=== PATIENT | female | born 1935 | race Caucasian/White ===

== ENCOUNTER → 2016-09-17 | Outpatient (CLI) | payer OTHER | LOC: FIMAGING 11:13 | PROVIDERS: ATTEND Internal Medicine | DX: Z12.31 Encounter for screening mammogram for malignant neoplasm of breast (principal) | CPT/HCPCS: G0202 ==

== ENCOUNTER 2016-10-09 15:58 | Inpatient (IN) | payer OTHER ==
--- NOTE | 2016-10-09 17:09 | CPEKG ---
Heart Rate: 52 RR Interval: 1154 P-R Interval: 164 QRSD Interval: 84 QT Interval: 488 QTC Interval: 454 P Isabella: 45 QRS Isabella: -11 T Wave Isabella: 12 EKG Severity - ABNORMAL ECG - EKG Impression: SINUS RHYTHM EKG Impression: LEFT VENTRICULAR HYPERTROPHY EKG Impression: LVH IS NEW IN COMPARISON TO PRIOR ECGS (2015, 2012) Electronically Signed By: Jermaine Monroe 11-Oct-2016 15:26:01
[2016-10-09] MEDS ORDERED: NS 500 ML IV ONE (17:41)
--- NOTE | 2016-10-09 17:51 | EDPHY ---
HPI/HX/ROS/PE/MDM Narrative: CHIEF COMPLAINT: High blood pressure HPI: This patient is an 81 year old female arriving with her family complaining of vertigo, nausea, and abnormal high blood pressure onset today. She generally has vertigo, which is resolvable with the Cayla maneuver. She has had some vertigo for the last couple days. Today, her symptoms were worse than usual: tipping her head down makes her nauseous, and turning her head causes pressure, especially at the back of her head. She took her blood pressure at home, and noted it was much higher than usual. She visited her primary care provider, who took two more blood pressure readings which measured around 200/100 and recommended she present to the emergency department for evaluation. She is currently feeling better than she did earlier, but continues to feel some vertigo and mild neck pain. She endorses mild left arm pain. No chest pain or shortness of breath. She was taking HCTZ, but discontinued this under her doctor 's advice around one-two weeks ago due to low blood pressure. REVIEW OF SYSTEMS: Aside from elements discussed in the HPI, a comprehensive 10-point review of systems was reviewed and is negative. PMH: Essential tremors (Propranolol), Vertigo, Inner ear problems, Pancreatic cyst, Hypothyroid, Depression SOCIAL HISTORY: . at bedside. Lives in [place]. Retired. PHYSICAL EXAM: General:Patient is alert, in no acute distress. ENT:Eyes are normal to inspection. ENT inspection normal. Neck: Normal inspection. Full range of motion. Respiratory:No respiratory distress. Breath sounds normal bilaterally. Cardiovascular: Regular rate and rhythm. Strong peripheral pulses. Normal cap refill. Abdomen:The abdomen is nontender to palpation. There are no peritoneal signs. There are normal bowel sounds. Back: Normal to inspection. No tenderness to palpation. Skin: Normal color. No rash. Warm and dry. Extremities: Normal appearance. Full range of motion. Neuro: Oriented x3. Normal motor function. Normal sensory function. No pronator drift. [id number] normal. Portions of this note were transcribed by an ED scribe. I personally performed the history, physical exam, and medical decision making; and confirm the accuracy of the information in the transcribed note. ED Course: EKG was ordered and interpreted by myself. Please see [employer] system for official reading. Plan for labs including CBC, BMP, and Troponin. Plan for CT head without contrast. MDM: On re-evaluation at 8:45 p.m., the patient is stable but states she still feels very weak and unsteady. Her blood pressures come down spontaneously to approximately 160, without treatment of the normal saline, so I do not think further antihypertensives are indicated. Patient remains slightly bradycardic, so I certainly do not think further beta-odette therapy is indicated. Her workup is negative for acute ischemia but she did have an episode of left arm tingling associated with her hypertension. The patient states she does not feel comfortable going home and her elderly cannot take care of her, therefore I think she requires at least an observation stay overnight in the hospital. I spoke to Dr. Alejandra Becker who accepts admission. I see no evidence of ischemic stroke, hemorrhagic stroke, acute coronary syndrome, pneumonia, sepsis. - Data Points Imaging Results: Imaging Impressions Head CT 10/09/16 18:35 Impression: Normal. I telephoned results to Dr. Nash Baires at 2023 hours. Laboratory Results: Laboratory Results 10/09/16 17:18 10/09/16 17:18 10/09/16 10/09/16 17:18 17:18 WBC 7.17 10^3/uL 10^3/uL (3.80-9.50) RBC 4.19 10^6/uL 10^6/uL (4.18-5.33) Hgb 13.2 g/dL g/dL (12.6-16.3) Hct 38.2 % % (38.0-47.0) MCV 91.2 fL fL (81.5-99.8) MCH 31.5 pg pg (27.9-34.1) MCHC 34.6 g/dL g/dL (32.4-36.7) RDW 12.9 % % (11.5-15.2) Plt Count 232 10^3/uL 10^3/uL (150-400) MPV 10.4 fL fL (8.7-11.7) Neut % (Auto) 49.1 % % (39.3-74.2) Lymph % (Auto) 36.4 % % (15.0-45.0) [place] % (Auto) 11.3 % % (4.5-13.0) Eos % (Auto) 2.6 % % (0.6-7.6) Baso % (Auto) 0.3 % % (0.3-1.7) Nucleat RBC Rel Count 0.0 % % (0.0-0.2) Absolute Neuts (auto) 3.52 10^3/uL 10^3/uL (1.70-6.50) Absolute Lymphs (auto) 2.61 10^3/uL 10^3/uL (1.00-3.00) Absolute Monos (auto) 0.81 10^3/uL H 10^3/uL (0.30-0.80) Absolute Eos (auto) 0.19 10^3/uL 10^3/uL (0.03-0.40) Absolute Basos (auto) 0.02 10^3/uL 10^3/uL (0.02-0.10) Absolute Nucleated RBC 0.00 10^3/uL 10^3/uL (0-0.01) Immature Gran % 0.3 % % (0.0-1.1) Immature Gran # 0.02 10^3/uL 10^3/uL (0.00-0.10) Sodium 141 mEq/L mEq/L (134-144) Potassium 3.9 mEq/L mEq/L (3.5-5.2) Chloride 105 mEq/L mEq/L (97-110) Carbon Dioxide 24 mEq/l mEq/l (22-31) Anion Gap 12 mEq/L mEq/L (8-16) BUN 16 mg/dL mg/dL (7-23) Creatinine 0.9 mg/dL mg/dL (0.6-1.0) Estimated GFR > 60 Glucose 96 mg/dL mg/dL (70-100) Calcium 9.8 mg/dL mg/dL (8.5-10.4) Troponin I < 0.012 ng/mL ng/mL (0-0.034) Medications Given: Discontinued Medications Sodium Chloride (Ns) 500 mls @ 1,000 mls/hr IV EDNOW ONE PRN Reason: Protocol Stop: 10/09/16 18:10 Last Admin: 10/09/16 17:49 Dose: 500 mls General Time Seen by Provider: 10/09/16 17:21 Initial Vital Signs: Initial Vital Signs Temperature (C) 36.7 C 10/09/16 16:00 Heart Rate 58 L 10/09/16 16:00 Respiratory Rate 18 10/09/16 16:00 Blood Pressure 204/103 H 10/09/16 16:00 O2 Sat (%) 94 10/09/16 16:00 O2 Delivery Mode Room Air,[place] Allergies/Adverse Reactions: Penicillins Allergy (Unknown, Verified 10/09/16 21:12) Hives Home Medications: Medication Instructions Recorded FLUoxetine [Prozac 20 MG (*)] 20 mg PO HS 03/13/12 Levothyroxine [Synthroid 50 mcg 50 mcg PO DAILY 03/13/12 (*)] Ranitidine HCl [Ranitidine HCl 150 150 mg PO BID 03/13/12 mg] Losartan Potassium [Cozaar 50 mg 50 mg PO HS 01/20/16 (*)] Propranolol Sr [Inderal LA 60mg 60 mg PO DAILY 01/20/16 (*)] Simvastatin [Zocor] 40 mg PO HS 01/20/16 Departure - Departure Disposition: [facility] Acute Clinical Impression: Hypertension, Headache, Vertigo Condition: Fair
[2016-10-09 17:55] LABS: % IMMATURE GRANULYOCYTES 0.3 % (0.0-1.1); ABSOLUTE IMMATURE GRANULOCYTES 0.02 10^3/uL (0.00-0.10); ADD DIFF? NO; ADD MORPH? NO; ADD SCAN? NO; ATYPICAL LYMPHOCYTE FLAG 0 (0-99); FRAGMENT RBC FLAG 0 (0-99); HEMATOCRIT 38.2 % (38.0-47.0); HEMOGLOBIN 13.2 g/dL (12.6-16.3); LEFT SHIFT FLG 0 (0-99); LIPEMIA HEMOLYSIS FLAG 90 (0-99); MEAN CELL HEMOGLOBIN 31.5 pg (27.9-34.1); MEAN CELL HEMOGLOBIN CONCENTR. 34.6 g/dL (32.4-36.7); MEAN CELL VOLUME 91.2 fL (81.5-99.8); MEAN PLATELET VOLUME 10.4 fL (8.7-11.7); PLATELET CLUMPS FLAG 0 (0-99); PLATELET COUNT 232 10^3/uL (150-400); RED BLOOD CELL COUNT 4.19 10^6/uL (4.18-5.33); RED CELL DISTRIBUTION WIDTH 12.9 % (11.5-15.2)
[2016-10-09 17:58] LABS: ANION GAP 12 mEq/L (8-16); CALCIUM 9.8 mg/dL (8.5-10.4); CARBON DIOXIDE 24 mEq/l (22-31); CHLORIDE 105 mEq/L (97-110); CREATININE 0.9 mg/dL (0.6-1.0); GLOMERULAR FILTRATION RATE > 60; GLUCOSE 96 mg/dL (70-100); POTASSIUM 3.9 mEq/L (3.5-5.2); SODIUM 141 mEq/L (134-144)
[2016-10-09 18:10] LABS: TROPONIN I < 0.012 ng/mL (0-0.034)
[2016-10-09] MEDS ORDERED: ONDANSETRON 4 MG/2 ML VIAL IVP PRN (21:52)
[2016-10-09] MEDS ORDERED: ONDANSETRON DISINTEGRATING 4 MG TAB PO PRN (21:52)
[2016-10-09] MEDS: FLUoxetine 20 MG CAP PO SCH (22:19)
[2016-10-09] MEDS: LOSARTAN POTASSIUM 50 MG TAB PO SCH (22:19)
[2016-10-09] MEDS: ATORVASTATIN CALCIUM 20 MG TAB PO SCH (22:19)
[2016-10-09] MEDS: FAMOTIDINE 20 MG TAB PO SCH (22:24)
--- NOTE | 2016-10-09 23:03 | GHP ---
[f rep st] HISTORY AND PHYSICAL DATE OF ADMISSION: 10/09/2016 CHIEF COMPLAINT: Hypertension and headache. HISTORY OF PRESENT ILLNESS: The patient is an 81-year-old female, with a history of positional vert igo, essential tremor, and hypertension, who presented to the emergency department after having an e levated blood pressure at home. She was recently seen in her primary care physician's office and he r hydrochlorothiazide was discontinued due to low blood pressure. She was going to her primary care physician's office where her systolic blood pressure was greater than 200. This was associated wit h a headache, which she describes as a pressure sensation in her head. She denied any vision change s or speech abnormalities. She has had no chest pain or shortness of breath. She reports recurrent positional vertigo, though has no symptoms at this time, and did not become vertiginous with her el evated blood pressure. In the emergency department, she was given 500 cc of normal saline, and with time her systolic blood pressure has come down to 157/80. She is currently asymptomatic, is admitted to the hospital for f urther observation. PAST MEDICAL HISTORY: 1. Hypertension. 2. Hyperlipidemia. 3. Hypothyroidism. 4. GERD. 5. Pulmonary hypertension. 6. History of diastolic dysfunction. 7. Essential tremor. 8. Benign paroxysmal positional vertigo. 9. Depression. 10. History of pancreatic cyst. PAST SURGICAL HISTORY: Parotid tumor resection, bilateral lower extremity vein ligations, hemorrhoi dectomy, cervical fusion. MEDICATIONS: Please see [employer] for complete updated outpatient medication list. ALLERGIES: Penicillin. SOCIAL HISTORY: The patient is . She lives independently. Her at the bedside. She is a former smoker. She denies alcohol or drug use. FAMILY HISTORY: Reviewed and noncontributory. REVIEW OF SYSTEMS: A 10-point review of systems was performed and is negative except as per HPI. PHYSICAL EXAMINATION: VITAL SIGNS: On arrival, blood pressure was 204/103, current blood pressure 157/80 without intervention. Heart rate is in the 50s. Respiratory rate is 16. She is 96% on room air. GENERAL: The patient is awake, alert, oriented, in no acute distress. HEENT: Head is atrau matic, normocephalic. Pupils equal, round, react to light. Extraocular muscles intact. Oropharynx is clear. Mucous membranes are moist. NECK: Supple. There is no JVD. HEART: Regular rate and r hythm without murmur. LUNGS: Clear to auscultation bilaterally. ABDOMEN: Soft, nondistended, non tender, with normoactive bowel sounds. EXTREMITIES: Without cyanosis, clubbing, or edema. NEUROLO GIC: A benign tremor is noted. There is no facial asymmetry. Pronator drift is negative. She has 5/5 muscle strength in bilateral upper and lower extremities. Speech is fluent. There are no foca l neuro deficits. LABORATORY DATA: CBC is completely normal. Basic metabolic panel shows normal electrolytes, normal kidney function. Troponin is negative. Head CT performed in the emergency department, personally reviewed and interpreted, shows no acute i ntracranial abnormality. EKG shows normal sinus rhythm. Finding suspicious for left ventricular hypertrophy. Otherwise, no ST-segment or T-wave changes concerning for acute ischemia. She does have T-wave inversions in lead III, though this is not carried over into continuous leads. ASSESSMENT AND PLAN: The patient is an 81-year-old female with history of hypertension and position al vertigo, presents to the emergency department with headache and elevated blood pressure. 1. Hypertensive urgency. I suspect her headache symptoms were related to her elevated blood pressu re. Her systolic blood pressure has come down on its own. She has not received anything to treat h er blood pressure thus far. She is currently 157/80, and she is asymptomatic. She will be admitted for observation. Continue her on her regular outpatient medications, including losartan and propra nolol. We can uptitrate these as needed. She did apparently have hypotension, and her hydrochlorot hiazide was recently discontinued. Therefore, we may need to accept some slightly more elevated sys tolic pressures to avoid hypotensive events. We will go ahead and trend her troponin. 2. Vertigo. She has been diagnosed with benign paroxysmal positional vertigo, and has an appointme nt with outpatient physical therapy to undergo Apley maneuvers. She is currently asymptomatic. 3. Essential tremor. We will continue her on her propranolol. 4. Hyperlipidemia. We will continue her statin. 5. Hypothyroidism. We will continue her levothyroxine. 6. Depression, anxiety. She will be continued on her Prozac. 7. Code status: Patient is full code. 8. Deep vein thrombosis prophylaxis. We will place sequential compression devices for now. If the patient has a prolonged hospitalization, would consider Lovenox. DISPOSITION: Patient is admitted to observation status. She will likely be a candidate for dischar ge tomorrow if she remains asymptomatic and normotensive. /[id number]/MODL
[2016-10-10] MEDS: LEVOTHYROXINE 50 MCG TAB PO SCH (06:00)
[2016-10-10] MEDS: ACETAMINOPHEN 325 MG TAB PO PRN ×2 (06:01→15:50)
[2016-10-10] MEDS: PROPRANOLOL SR 60 MG CAP PO SCH (08:54)
[2016-10-10] MEDS: FAMOTIDINE 20 MG TAB PO SCH (08:54)
--- NOTE | 2016-10-10 11:24 | HOSPPROG ---
Hospitalist Progress Note Assessment/Plan: 81 yo female admitted with HTN urgency (first encounter with this patient) #HTN Urgency, still with elevated BP -Recently stopped HCTZ, will not continue -will increase Losartan to 50mg HS and start 25mg Qam (first dose now) -Cont Propranolol -Allow some permissive HTN, but too high at this time -Labile BP noted, will avoid Hypotension #BRAVO -resolved, likely due to elevated BP #Vertigo: no sx's currently. Already has outpatient f/u with PT #Fatigue and generalized weakness, will order PT #HLD #Hypothyroidism: cont Levothyroxine #DVT proph: will start Lovenox today Dispo: change to inpatient. Await response to increase meds per above. Anticipate d/c in 1/2 days. Subjective: still with elevated BP. BRAVO resolved. NO CP or SOB. Very fatigued and generalized weakness. Objective: Vital Signs Temp Pulse Resp BP Pulse Ox 36.5 C 55 L 16 162/89 H 95 10/10/16 07:22 10/10/16 08:54 10/10/16 07:22 10/10/16 08:54 10/10/16 07:22 10/09/16 10/10/16 10/11/16 05:59 05:59 05:59 Intake Total 100 Output Total 800 Balance -700 - Physical Exam Constitutional: chronically ill appearing Eyes: PERRL, EOMI Ears, Nose, Mouth, Throat: moist mucous membranes, hearing normal Cardiovascular: regular rate and rhythym, No JVD, No bradycardia, No edema Respiratory: no respiratory distress, no rales or rhonchi, clear to auscultation Gastrointestinal: normoactive bowel sounds, soft, non-tender abdomen, no palpable masses Genitourinary: no bladder fullness Skin: warm Musculoskeletal: generalized weakness Neurologic: AAOx3 Psychiatric: interacting appropriately, not encephalopathic, thought process linear, anxious ICD10 Worksheet Patient Problems: Problems Problem Status Onset Headache Acute Hypertension Acute Vertigo Acute Failure to thrive Acute Tremor Acute
[2016-10-10] MEDS: LOSARTAN POTASSIUM 25 MG TAB PO SCH (12:25)
[2016-10-10] MEDS: ENOXAPARIN 40 MG/0.4 ML SYR SC SCH (12:25)
[2016-10-10 19:44] VITALS: RESP 16
[2016-10-10] MEDS: ATORVASTATIN CALCIUM 20 MG TAB PO SCH (20:22)
[2016-10-10] MEDS: LOSARTAN POTASSIUM 50 MG TAB PO SCH (20:22)
[2016-10-10] MEDS: FLUoxetine 20 MG CAP PO SCH (20:22)
[2016-10-11] MEDS: ACETAMINOPHEN 325 MG TAB PO PRN (00:49)
[2016-10-11] MEDS: LEVOTHYROXINE 50 MCG TAB PO SCH (05:33)
[2016-10-11 08:27] VITALS: BP 155/87; PULSE 56; TEMP 98.4; O2SAT 94
[2016-10-11] MEDS ORDERED: FAMOTIDINE 20 MG TAB PO SCH (09:00)
[2016-10-11] MEDS: PROPRANOLOL SR 60 MG CAP PO SCH (09:47)
[2016-10-11] MEDS: LOSARTAN POTASSIUM 25 MG TAB PO SCH (09:48)
[2016-10-11] MEDS: ENOXAPARIN 40 MG/0.4 ML SYR SC SCH (09:48)
--- NOTE | 2016-10-11 10:25 | PDDCSUM ---
Discharge Summary Discharge Summary: 81 yo female admitted with HTN urgency. She was admitted and provided IV BP meds. Her home regimen was modified and Losartan was increased to 25mg qam and 50mg qhs. BP now is better and mostly 150's - 160's. No further decrease of BP at this time, will allow for some permissive HTN given her age as well as likely elevated for some time. Will need f/u with PCP which she will arrange. DDX #HTN Urgency -Recently stopped HCTZ, will not continue -will increase Losartan to 50mg HS and start 25mg Qam -Cont Propranolol -Allow some permissive HTN -Labile BP noted, avoid Hypotension #BRAVO -resolved, likely due to elevated BP #Vertigo: no sx's currently. Already has outpatient f/u with PT #Fatigue and generalized weakness: feels better. Worked with PT #HLD #Hypothyroidism: cont Levothyroxine #DVT proph: Lovenox was provided P.E. VS Reviewed, BP 150's NAD AAOX3 PEERL EOMI NO JVD RRR CTA B NO LE EDEMA MEDS: SEE MED REC NEW MEDS: Losartan 25mg qam total time spent on discharge: 35 minutes
== END 2016-10-11 11:16 | disposition home or self-care (01) | DRG 305 ==
LOC: F1N 21:15 → OBSVTOIN 10-10 11:40
PROVIDERS: ADMIT Hospitalist; ATTEND Hospitalist
DX: I16.0 Hypertensive urgency (principal); H81.10 Benign paroxysmal vertigo, unspecified ear; G25.0 Essential tremor; E78.5 Hyperlipidemia, unspecified; E03.9 Hypothyroidism, unspecified; K21.9 Gastro-esophageal reflux disease without esophagitis; F41.8 Other specified anxiety disorders
CPT/HCPCS: 97161-GP; 97165-GO; G0378; G8978-GP-CJ; G8979-GP-CI; G8987-GO-CI; G8988-GO-CH; G8989-GO-CH; J1650

== ENCOUNTER 2016-10-20 16:05 | Emergency (ER) | payer OTHER ==
--- NOTE | 2016-10-20 16:56 | CPEKG ---
Heart Rate: 58 RR Interval: 1034 P-R Interval: 168 QRSD Interval: 76 QT Interval: 440 QTC Interval: 433 P [place]: 38 QRS [place]: -11 T Wave [place]: 2 EKG Severity - ABNORMAL ECG - EKG Impression: SINUS RHYTHM EKG Impression: CONSIDER LEFT VENTRICULAR HYPERTROPHY Electronically Signed By: Weston Dodson 20-Oct-2016 23:38:25
[2016-10-20 17:36] LABS: % IMMATURE GRANULYOCYTES 0.3 % (0.0-1.1); ABSOLUTE IMMATURE GRANULOCYTES 0.02 10^3/uL (0.00-0.10); ADD DIFF? NO; ADD MORPH? NO; ADD SCAN? NO; ATYPICAL LYMPHOCYTE FLAG 20 (0-99); FRAGMENT RBC FLAG 0 (0-99); HEMATOCRIT 37.2 % (38.0-47.0); HEMOGLOBIN 12.9 g/dL (12.6-16.3); LEFT SHIFT FLG 0 (0-99); LIPEMIA HEMOLYSIS FLAG 90 (0-99); MEAN CELL HEMOGLOBIN 31.5 pg (27.9-34.1); MEAN CELL HEMOGLOBIN CONCENTR. 34.7 g/dL (32.4-36.7); MEAN CELL VOLUME 90.7 fL (81.5-99.8); MEAN PLATELET VOLUME 10.6 fL (8.7-11.7); PLATELET CLUMPS FLAG 0 (0-99); PLATELET COUNT 245 10^3/uL (150-400); RED CELL DISTRIBUTION WIDTH 12.7 % (11.5-15.2)
[2016-10-20 17:39] LABS: ANION GAP 11 mEq/L (8-16); CALCIUM 9.6 mg/dL (8.5-10.4); CARBON DIOXIDE 21 mEq/l (22-31); CHLORIDE 109 mEq/L (97-110); CREATININE 0.9 mg/dL (0.6-1.0); GLOMERULAR FILTRATION RATE > 60; GLUCOSE 87 mg/dL (70-100); POTASSIUM 4.4 mEq/L (3.5-5.2); SODIUM 141 mEq/L (134-144)
[2016-10-20] MEDS ORDERED: ACETAMINOPHEN 500 MG TAB PO ONE (18:04)
--- NOTE | 2016-10-20 18:04 | EDPHY ---
H & P Time Seen by Provider: 10/20/16 17:30 HPI/ROS: Chief complaint. High blood pressure, headache HPI. Patient is an 81-year-old female here with high blood pressure and headache. She was hospitalized October 10 for the same. Her blood pressure was high. She was increased from losartan 50 mg at night to 25 mg in the morning and 25 mg at night. Her PCP recommended 50 in the morning and 50 at night the patient was concerned that her blood pressure might get too low. She was recently taken off hydrochlorothiazide because of low blood pressure. Today she felt tired to her blood pressure it was 175/95. She then took her blood pressure meds and blood pressure was 125/66. She was lying down took her blood pressure again and it was 160/93. She felt slightly dizzy which is typical of her vertigo. She then developed tightness to her head and now generalized headache. No change in her vision, chest discomfort, shortness of breath, abdominal pain, focal weakness to arms or legs. ROS Constitutional. High blood pressure Eyes. no problems with vision ENT. no sore throat, no nasal drainage Cardiovascular. no chest pain Respiratory. no shortness of breath, no cough Abdominal. no abdominal pain, no nausea/vomiting, no diarrhea . no problems urinating MS. no calf pain/swelling, no neck/back pain, no joint pain Skin. no rash Lymph. no swollen glands Neuro. Headache Past Medical/Surgical History: Hypertension, essential tremor, vertigo, hypothyroid, pancreatic cyst, depression Social History: , nonsmoker, no alcohol Smoking Status: Former smoker Physical Exam: General Appearance: Alert well-developed female moderate distress initial vital signs show blood pressure 1 79/97 Eyes: Pupils equal and round no pallor or injection. ENT, Mouth: Mucous membranes are moist. Respiratory: There are no retractions, lungs are clear to auscultation. Cardiovascular: Regular rate and rhythm. Gastrointestinal: Abdomen is soft and nontender, no masses, bowel sounds normal. Neurological: Awake and alert, sensory and motor exams grossly normal. Skin: Warm and dry, no rashes. Musculoskeletal: Neck is supple nontender. Extremities symmetrical, full range of motion. Psychiatric: Patient is oriented X 3, there is no agitation. Constitutional: Initial Vital Signs Temperature (C) 36.6 C 10/20/16 16:12 Heart Rate 62 10/20/16 16:12 Respiratory Rate 14 10/20/16 16:12 Blood Pressure 179/97 H 10/20/16 16:12 O2 Sat (%) 97 10/20/16 16:12 O2 Delivery Mode Room Air Allergies/Adverse Reactions: Penicillins Allergy (Unknown, Verified 10/09/16 21:12) Hives Home Medications: Medication Instructions Recorded FLUoxetine [Prozac 20 MG (*)] 20 mg PO HS 03/13/12 Levothyroxine [Synthroid 50 mcg 50 mcg PO DAILY 03/13/12 (*)] Ranitidine HCl [Ranitidine HCl 150 150 mg PO BID 03/13/12 mg] Losartan Potassium [Cozaar 50 mg 50 mg PO HS 01/20/16 (*)] Propranolol Sr [Inderal LA 60mg 60 mg PO DAILY 01/20/16 (*)] Simvastatin [Zocor] 40 mg PO HS 01/20/16 Losartan Potassium [Cozaar 25 mg 25 mg PO DAILY #30 tab 10/11/16 (*)] Losartan Potassium [Cozaar 50 mg 50 mg PO HS #30 tab 10/11/16 (*)] Medical Decision Making - Diagnostics EKG Interpretation: EKG interpreted by me shows normal sinus rhythm normal interval. There is left axis deviation. QRS is normal with evidence of LVH by voltage. No significant ST elevation or depression. Rate 58 Imaging Results: Imaging Impressions Head CT 10/20/16 18:04 Impression: Moderate senescent features, similar to 10/09/2016; however, there is no acute abnormality identified on this unenhanced CT evaluation. If there is further clinical concern regarding the patient's symptoms, MR imaging is suggested, if not otherwise contraindicated. Findings were discussed with AIDE JEAN MD at 18:41, on 10/20/2016. Head CT shows no evidence of intracranial bleeding Procedures: IV normal saline, monitor. Repeat blood pressure at 6:00 p.m. is 162/82 Tylenol for headache ED Course/Re-evaluation: Re-evaluation 6:57 p.m.--blood pressure 160/80. Mild headache but patient is stable Patient given losartan 25 mg in the department Patient, her , and I discussed imaging and lab results as well as EKG. We discussed treatment plan including criteria for return importance of follow- up and further evaluation. She expresses understanding Differential Diagnosis: I considered hypertensive urgency, encephalopathy, intracranial bleeding, acute coronary syndrome - Data Points Laboratory Results: Laboratory Results 10/20/16 17:09 10/20/16 17:45 10/20/16 10/20/16 10/20/16 17:45 17:09 17:09 WBC 7.94 10^3/uL 10^3/uL (3.80-9.50) RBC 4.10 10^6/uL L 10^6/uL (4.18-5.33) Hgb 12.9 g/dL g/dL (12.6-16.3) Hct 37.2 % L % (38.0-47.0) MCV 90.7 fL fL (81.5-99.8) MCH 31.5 pg pg (27.9-34.1) MCHC 34.7 g/dL g/dL (32.4-36.7) RDW 12.7 % % (11.5-15.2) Plt Count 245 10^3/uL 10^3/uL (150-400) MPV 10.6 fL fL (8.7-11.7) Neut % (Auto) 53.1 % % (39.3-74.2) Lymph % (Auto) 32.1 % % (15.0-45.0) Ness % (Auto) 11.8 % % (4.5-13.0) Eos % (Auto) 2.3 % % (0.6-7.6) Baso % (Auto) 0.4 % % (0.3-1.7) Nucleat RBC Rel Count 0.0 % % (0.0-0.2) Absolute Neuts (auto) 4.22 10^3/uL 10^3/uL (1.70-6.50) Absolute Lymphs (auto) 2.55 10^3/uL 10^3/uL (1.00-3.00) Absolute Monos (auto) 0.94 10^3/uL H 10^3/uL (0.30-0.80) Absolute Eos (auto) 0.18 10^3/uL 10^3/uL (0.03-0.40) Absolute Basos (auto) 0.03 10^3/uL 10^3/uL (0.02-0.10) Absolute Nucleated RBC 0.00 10^3/uL 10^3/uL (0-0.01) Immature Gran % 0.3 % % (0.0-1.1) Immature Gran # 0.02 10^3/uL 10^3/uL (0.00-0.10) Sodium 140 mEq/L mEq/L 141 mEq/L mEq/L (134-144) (134-144) Potassium 4.2 mEq/L mEq/L 4.4 mEq/L mEq/L (3.5-5.2) (3.5-5.2) Chloride 108 mEq/L mEq/L 109 mEq/L mEq/L (97-110) (97-110) Carbon Dioxide 22 mEq/l mEq/l 21 mEq/l L mEq/l (22-31) (22-31) Anion Gap 10 mEq/L mEq/L 11 mEq/L mEq/L (8-16) (8-16) BUN 19 mg/dL mg/dL 19 mg/dL mg/dL (7-23) (7-23) Creatinine 0.9 mg/dL mg/dL 0.9 mg/dL mg/dL (0.6-1.0) (0.6-1.0) Estimated GFR > 60 > 60 Glucose 88 mg/dL mg/dL 87 mg/dL mg/dL (70-100) (70-100) Calcium 9.4 mg/dL mg/dL 9.6 mg/dL mg/dL (8.5-10.4) (8.5-10.4) Troponin I < 0.012 ng/mL ng/mL (0.000-0.034) Medications Given: Discontinued Medications Acetaminophen (Tylenol) 1,000 mg PO EDNOW ONE Stop: 10/20/16 18:05 Last Admin: 10/20/16 18:12 Dose: 1,000 mg Departure - Departure Disposition: Home, Routine, Self-Care Clinical Impression: Hypertension Qualifiers: Hypertension type: unspecified Qualified Code(s): I10 - Essential (primary) hypertension Condition: Good Instructions: Hypertension (ED) Additional Instructions: Continue losartan and consider 50 mg in the morning and 50 mg at bedtime. Return for worsening headache, chest discomfort, trouble breathing. Referrals: Elana Guidry MD [Primary Care Provider] - 2-3 days without fail
[2016-10-20 18:08] LABS: CALCIUM 9.4 mg/dL (8.5-10.4); CARBON DIOXIDE 22 mEq/l (22-31); CHLORIDE 108 mEq/L (97-110); CREATININE 0.9 mg/dL (0.6-1.0); GLOMERULAR FILTRATION RATE > 60; GLUCOSE 88 mg/dL (70-100); SODIUM 140 mEq/L (134-144)
[2016-10-20 18:13] LABS: ANION GAP 10 mEq/L (8-16); POTASSIUM 4.2 mEq/L (3.5-5.2)
[2016-10-20 18:19] LABS: TROPONIN I < 0.012 ng/mL (0.000-0.034)
[2016-10-20] MEDS ORDERED: LOSARTAN POTASSIUM 25 MG TAB PO SCH (19:15)
[2016-10-20 19:43] VITALS: BP 158/88; PULSE 71; RESP 18; TEMP 98.2; O2SAT 96
== END 2016-10-20 19:42 | disposition home or self-care (01) ==
DX: I10 Essential (primary) hypertension (principal); Z87.891 Personal history of nicotine dependence

== ENCOUNTER 2017-02-01 16:20 | Emergency (ER) | payer OTHER ==
[2017-02-01 16:36] VITALS: TEMP 98.6; O2SAT 94
--- NOTE | 2017-02-01 17:26 | CPEKG ---
Heart Rate: 58 RR Interval: 1034 P-R Interval: 156 QRSD Interval: 80 QT Interval: 432 QTC Interval: 425 P [place]: 61 QRS [place]: -2 T Wave [place]: -4 EKG Severity - BORDERLINE ECG - EKG Impression: SINUS RHYTHM Electronically Signed By: Wong Santana 01-Feb-2017 18:04:14
[2017-02-01 17:47] LABS: % IMMATURE GRANULYOCYTES 0.3 % (0.0-1.1); ABSOLUTE IMMATURE GRANULOCYTES 0.02 10^3/uL (0.00-0.10); ADD DIFF? NO; ADD MORPH? NO; ADD SCAN? NO; ATYPICAL LYMPHOCYTE FLAG 0 (0-99); FRAGMENT RBC FLAG 0 (0-99); HEMATOCRIT 37.7 % (38.0-47.0); LEFT SHIFT FLG 0 (0-99); LIPEMIA HEMOLYSIS FLAG 90 (0-99); MEAN CELL HEMOGLOBIN 31.3 pg (27.9-34.1); MEAN CELL HEMOGLOBIN CONCENTR. 34.5 g/dL (32.4-36.7); MEAN CELL VOLUME 90.8 fL (81.5-99.8); MEAN PLATELET VOLUME 10.2 fL (8.7-11.7); PLATELET CLUMPS FLAG 0 (0-99); PLATELET COUNT 248 10^3/uL (150-400); RED BLOOD CELL COUNT 4.15 10^6/uL (4.18-5.33); RED CELL DISTRIBUTION WIDTH 12.7 % (11.5-15.2)
[2017-02-01 17:53] LABS: ANION GAP 13 mEq/L (8-16); CALCIUM 9.5 mg/dL (8.5-10.4); CARBON DIOXIDE 21 mEq/l (22-31); CHLORIDE 105 mEq/L (97-110); GLOMERULAR FILTRATION RATE 53; GLUCOSE 83 mg/dL (70-100); POTASSIUM 4.6 mEq/L (3.5-5.2); SODIUM 139 mEq/L (134-144); SPECIMEN HEMOLYSIS 104
[2017-02-01 18:03] VITALS: BP 135/71; PULSE 54; RESP 19
--- NOTE | 2017-02-01 18:03 | EDPHY ---
H & P Time Seen by Provider: 02/01/17 17:13 HPI/ROS: CHIEF COMPLAINT: Low blood pressure HISTORY OF PRESENT ILLNESS: Patient admission in October for hypertensive urgency. She is on losartan and propranolol and Norvasc. Today she was feeling more tired than usual although she has been feeling tired for about the last 6 months. She thinks it is when her blood pressure is low and her pressure was 91/58 at 2:15 p.m. at this time. Today she only took half of her Morning Cozaar because her blood pressure was low this morning. She denies vertigo or dizziness currently, no syncope, no chest pain or shortness of breath. No fainting. REVIEW OF SYSTEMS: Eye: no change in vision ENT: no sore throat Cardiac: no chest pain or syncope Pulmonary: no cough or SOB Abdomen: no vomiting, diarrhea, abdominal pain Musculoskeletal: no back pain Skin: no rash Neuro: No headache, has resting tremor for which she takes propranolol. Constitutional: no fever : no urinary symptoms A comprehensive 10 point review of systems is otherwise negative aside from elements mentioned in the history of present illness. PAST MEDICAL HISTORY: Essential tremor, vertigo, thyroid, pancreatic cyst, depression. Social history: here with , no alcohol HR 55-65 in ED on monitor. General Appearance: Alert and conversant, cooperative. Eyes: No scleral icterus. ENT, Mouth: Normal mucous membranes. Respiratory: Normal respiratory effort, breath sounds equal, lungs are clear to auscultation. Cardiovascular: Regular rate and rhythm. Gastrointestinal: Abdomen is soft and non tender. Neurological: Alert and oriented x3. Normally conversant. Face symmetric, normal movement and sensation in all extremities. Mild resting tremor. Skin: Warm and dry, no rashes. Musculoskeletal: No peripheral edema and no joint swelling. Psychiatric: Not agitated. Emergency Department course/MDM: Patient's blood pressure here is 138/76, 135/71. I think it is reasonable for her to cut her evening Cozaar dose in half as well if she continues to have low blood pressure and fatigue. She does not have suggestion of acute coronary syndrome, sepsis or infection, CHF, hypovolemia to suggest a reason for low blood pressure. I think it is most likely due to medications. Smoking Status: Former smoker Constitutional: Initial Vital Signs Temperature (C) 37.0 C 02/01/17 16:33 Respiratory Rate 16 02/01/17 16:33 Blood Pressure 141/69 H 02/01/17 16:33 O2 Sat (%) 94 02/01/17 16:33 O2 Delivery Mode Room Air Allergies/Adverse Reactions: Penicillins Allergy (Unknown, Verified 10/09/16 21:12) Hives Home Medications: Medication Instructions Recorded FLUoxetine [Prozac 20 MG (*)] 20 mg PO HS 03/13/12 Levothyroxine [Synthroid 50 mcg 50 mcg PO DAILY 03/13/12 (*)] Ranitidine HCl [Ranitidine HCl 150 150 mg PO BID 03/13/12 mg] Losartan Potassium [Cozaar 50 mg 50 mg PO HS 01/20/16 (*)] Propranolol Sr [Inderal LA 60mg 60 mg PO DAILY 01/20/16 (*)] Simvastatin [Zocor] 40 mg PO HS 01/20/16 Losartan Potassium [Cozaar 25 mg 25 mg PO DAILY #30 tab 10/11/16 (*)] Losartan Potassium [Cozaar 50 mg 50 mg PO HS #30 tab 10/11/16 (*)] Medical Decision Making - Diagnostics EKG Interpretation: 12-lead EKG interpreted by me; official reading is in trace master. My interpretation is sinus rhythm rate 58, no ischemic changes. - Data Points Laboratory Results: Laboratory Results 02/01/17 17:25 02/01/17 17:25 02/01/17 02/01/17 17:25 17:25 WBC 7.92 10^3/uL 10^3/uL (3.80-9.50) RBC 4.15 10^6/uL L 10^6/uL (4.18-5.33) Hgb 13.0 g/dL g/dL (12.6-16.3) Hct 37.7 % L % (38.0-47.0) MCV 90.8 fL fL (81.5-99.8) MCH 31.3 pg pg (27.9-34.1) MCHC 34.5 g/dL g/dL (32.4-36.7) RDW 12.7 % % (11.5-15.2) Plt Count 248 10^3/uL 10^3/uL (150-400) MPV 10.2 fL fL (8.7-11.7) Neut % (Auto) 53.7 % % (39.3-74.2) Lymph % (Auto) 29.0 % % (15.0-45.0) Hart % (Auto) 14.3 % H % (4.5-13.0) Eos % (Auto) 2.3 % % (0.6-7.6) Baso % (Auto) 0.4 % % (0.3-1.7) Nucleat RBC Rel Count 0.0 % % (0.0-0.2) Absolute Neuts (auto) 4.26 10^3/uL 10^3/uL (1.70-6.50) Absolute Lymphs (auto) 2.30 10^3/uL 10^3/uL (1.00-3.00) Absolute Monos (auto) 1.13 10^3/uL H 10^3/uL (0.30-0.80) Absolute Eos (auto) 0.18 10^3/uL 10^3/uL (0.03-0.40) Absolute Basos (auto) 0.03 10^3/uL 10^3/uL (0.02-0.10) Absolute Nucleated RBC 0.00 10^3/uL 10^3/uL (0-0.01) Immature Gran % 0.3 % % (0.0-1.1) Immature Gran # 0.02 10^3/uL 10^3/uL (0.00-0.10) Sodium 139 mEq/L mEq/L (134-144) Potassium 4.6 mEq/L mEq/L (3.5-5.2) Chloride 105 mEq/L mEq/L (97-110) Carbon Dioxide 21 mEq/l L mEq/l (22-31) Anion Gap 13 mEq/L mEq/L (8-16) BUN 21 mg/dL mg/dL (7-23) Creatinine 1.0 mg/dL mg/dL (0.6-1.0) Estimated GFR 53 Glucose 83 mg/dL mg/dL (70-100) Calcium 9.5 mg/dL mg/dL (8.5-10.4) TSH 2.590 uIU/mL uIU/mL (0.465-4.680) Specimen Hemolysis 104 Departure - Departure Disposition: Home, Routine, Self-Care Clinical Impression: Hypotension due to medication Condition: Good Instructions: Losartan (By mouth) Additional Instructions: If you continue with low blood pressure readings it is reasonable to cut your evening losartan dose to 25 mg instead of 50. Call Dr. Guidry office on Saturday to discuss blood pressure medication. Referrals: Elana Guidry MD [Primary Care Provider] - As per Instructions
== END 2017-02-01 18:12 | disposition home or self-care (01) ==
DX: I95.2 Hypotension due to drugs (principal); T46.4X5A Adverse effect of angiotensin-converting-enzyme inhibitors, initial encounter; Z87.891 Personal history of nicotine dependence

== ENCOUNTER → 2017-12-16 | Outpatient (CLI) | payer OTHER | LOC: FIMAGING 15:57 | PROVIDERS: ATTEND Internal Medicine | DX: R10.9 Unspecified abdominal pain (principal); R14.0 Abdominal distension (gaseous) ==